=== PATIENT | male | born 1950 | race Caucasian/White ===

== ENCOUNTER 2017-06-11 14:15 | Emergency (ER) | payer MEDICARE, OTHER ==
[~2017-06-11] VITALS: Ht 175.3 cm; Wt 106.6 kg
== END 2017-06-11 16:02 | disposition home or self-care (01) ==
LOC: ED 14:15
PROC: 0HQ0XZZ Repair Scalp Skin, External Approach (ICD-10-PCS; principal; 2017-06-11)
DX: S06.0X9A Concussion with loss of consciousness of unspecified duration, initial encounter (principal); S01.01XA Laceration without foreign body of scalp, initial encounter; W01.198A Fall on same level from slipping, tripping and stumbling with subsequent striking against other object, initial encounter
CPT/HCPCS: 12002; 70450; 99284

== ENCOUNTER 2019-09-26 10:48 | Emergency (ER) | payer MEDICARE, OTHER ==
[~2019-09-26] VITALS: Ht 175.3 cm; Wt 106.6 kg
[2019-09-26] MEDS ORDERED: HYDROCHLOROTH12.5 MG PO (11:20)
[2019-09-26] MEDS ORDERED: GLIMEPIRIDE4 MG PO (11:21)
[2019-09-26] MEDS ORDERED: METFORMIN HCL500 MG PO (11:21)
[2019-09-26] MEDS ORDERED: PIOGLITAZONE HC30 MG PO (11:22)
[2019-09-26] MEDS ORDERED: LOTENSIN40 MG PO (11:22)
[2019-09-26] MEDS ORDERED: LOVASTATIN40 MG PO (11:22)
[2019-09-26] MEDS ORDERED: KEFLEX500 MG PO (12:13)
== END 2019-09-26 12:39 | disposition home or self-care (01) ==
LOC: ED 10:48
DX: N39.0 Urinary tract infection, site not specified (principal); E11.9 Type 2 diabetes mellitus without complications; I10 Essential (primary) hypertension; E78.5 Hyperlipidemia, unspecified; Z79.899 Other long term (current) drug therapy
CPT/HCPCS: 81001; 87077; 87088; 87186; 99283; A9270

== ENCOUNTER 2021-03-07 04:00 | Inpatient (IN) | payer MEDICARE, OTHER ==
[~2021-03-07] VITALS: Ht 175.3 cm; Wt 126.0 kg
[~2021-03-07 04:00] MED LIST: GLIMEPIRIDE4 MG PO; HYDROCHLOROTH12.5 MG PO; KEFLEX500 MG PO; LOTENSIN40 MG PO; LOVASTATIN40 MG PO; METFORMIN HCL500 MG PO; PIOGLITAZONE HC30 MG PO
--- NOTE | 2021-03-07 06:50 | NUR ---
PT ARRIVES TO THE FLOOR VIA STRETCHER. PT ABLE TO STAND AND TRASFER TO THE BED. TOLERATED WELL. RAILROAD WORKER AT BEDSIDE TO COMPLETE ADMISSION PROCESS. TELE # [address]. SAO2 91% ON 3LPM. LUNG SOUNDS WITH CRACKLES IN BILATERAL LOWER LOBES. NONPRODUCTIVE COUGH PRESENT DURING ADMISSION. HR 70'S TO 80'S. SCHEDULED INFUSION RUNNING UPON ARRIVAL TO FLOOR. PT ORIENTED TO ROOM AND UNIT. DENIES FURTHER NEEDS AT THIS TIME. CALL LIGHT IN REACH.
[2021-03-07] MEDS ORDERED: METFORMIN HCL500 M1 PO (10:10)
--- NOTE | 2021-03-07 10:10 | NUR ---
PATEINT AWAKE IN BED, CAREGIVER/DAUGHTER AT BEDSIDE. VITALS AND I&OS CHARTED. CALL LIGHT IN REACH, NO OTHER NEEDS AT THIS TIME
[2021-03-07] MEDS ORDERED: HYDROCHLOROTH12.5 M1 PO (10:11)
--- NOTE | 2021-03-07 10:48 | NUR ---
Tylenol 650mg po and tessalon perles 100mg po for admin for cough and generalized pain.
--- NOTE | 2021-03-07 11:15 | NUR ---
Pt reported urgency and frequenct with void. Dr. Douglas made aware of pt complains. New order obtained from Dr. Douglas to send off a urine with next void. UA order placed at this time.
--- NOTE | 2021-03-07 12:31 | NUR ---
Urine sent to lab.
--- NOTE | 2021-03-07 13:37 | NUR ---
Patient assisted to restroom and back to bed for bm. Patient reported shortness of breath while on the toilet, increased oxygen to 10L from 3L per nc. Patient's oxygen dropped to 80% while up on toilet then steadily increased to 90% after oxygen titrated up to the 10L. Pt back to bed, oxygen decreased to his baseline of 3L per nc, sat level 92%.
--- NOTE | 2021-03-07 17:37 | NUR ---
Increased patient to 6L per nc for oxygen desat of 86% sustained.
--- NOTE | 2021-03-07 17:39 | NUR ---
SPOKE WITH PATIENT VIA ROOM PHONE. PATIENT IS SOB WITH SPEAKING. LIVES WITH . IS RETIRED, DRIVES. USES NO DME. DENIES FINANCIAL CONCERN FOR AFFORDING MEDS/FOOD/UTILTIES. DISCUSSED POSSIBILITY OF NEEDING OXYGEN AT DISCHARGE. HE HAS NO PREFERENCE OF COMPANIES. IS NOT SURE HIS WILL BE ABLE TO COME GET HIM, HE DROVE HIMSELF IN. STATES SHE HAS ASTHMA AND "I DON'T WANT TO GIVE THIS TO HER". ASSURRED HIM THAT IF HE DOESN'T HAVE A RIDE WE WILL HELP WITH THIS. PATIENT HAS NO OTHER QUESTIONS AT THIS TIME.
--- NOTE | 2021-03-07 18:39 | NUR ---
Increased patient's oxygen to 9L per nc due to sp02 of 86% on 6L. Sp02 increased tp 90-92% on 9L oxygen per nc. Transiioned patient to side lying position as he reports he is unable to lay directly on his belly. No further needs. Personal supplies and call light within reach.
--- NOTE | 2021-03-07 19:20 | NUR ---
REPORT RECEIVED FROM OFFGOING RNJIGNA. OFFGOING RN TO PT ROOM FOR DESATURATION TO 79%. RT NOTIFIED. NONREBREATHER PLACED. SAO2 INCREASED TO 90'S. RT AT BEDSIDE. CALL LIGHT IN REACH.
--- NOTE | 2021-03-07 20:22 | EKG ---
[facility] [address] [place], [place] [address] Signed Sinus rhythm with premature atrial complexes Otherwise normal ECG No previous ECGs available Confirmed by ERENDIRA RENNER DO ([id number]) on 03/07/2021 8:21:54 PM Electronically Signed By: ERENDIRA RENNER DO 03/07/212021 PATIENT NAME: NAJMA MARQUEZ Electrocardiogram DATE OF : 52 PHYSICIAN: ERENDIRA RENNER DO REPORT #: [id number] REPORT IS CONFIDENTIAL AND NOT TO BE RELEASED WITHOUT AUTHORIZATION
--- NOTE | 2021-03-07 20:30 | NUR ---
PT ASSESSMENT COMPLETE. TELE # [address] HR 70'S, SR. LUNG SOUNDS WITH CRACKLES TO RLL. LLL DIM. VAPOTHERM IN PLACE, RT TO ROOM DURING ASSESSMENT FOR LOW O2 SATS. VAPOTHERM INCREASED BY RT. IVF INFUSING ORDERED. IV IS VERY POSITIONAL IN PT'S WRIST, FLUSHED, PATENT. ICE WATER REFILLED. PT DENIES FURTHER NEEDS AT THIS TIME. CALL LIGHT IN REACH.
--- NOTE | 2021-03-07 21:30 | NUR ---
WARDROBE MANAGER TO ROOM FOR SCHEDULED MED ADMINISTRATION. PT UP TO EDGE OF BED TO USE THE URINAL, HAD DIFFICULTY MANAGING CORDS AND CLOTHING. ASSISTED BYT HIS WARDROBE MANAGER AND HEAD SOFT SUGAR OPERATOR. PT BACK TO BED. PT DESATS TO LOW 80'S AFTER ACTIVITY. VAPOTHERM INCREASED TO 40/100%. MD TO [facility], EXPLAINED PT ACTIVITY. PER MD, OFFER RED CATH. SA02 INCREASED TO 90'S WITH INCREASE IN VAPOTHERM. PT STATES THAT HE WOULD LIKE TO SEE HOW THE NIGHT GOES TO DECIDE ON RED CATH. PT PRONING EDUCATION REINFORCED. PT STATES THAT HE IS UNABLE TO LAY ON HIS STOMACH COMFORTABLY. PT ENCOURAGED TO LAY ON HIS SIDE, WARDROBE MANAGER ASSISTS PT TO LAY ON SIDE AND PROPPED WITH PILLOWS. PT DENIES FURTHER NEEDS AT THIS TIME. CALL LIGHT IN REACH.
--- NOTE | 2021-03-07 22:35 | NUR ---
FACILITY SPECIALIST TO ROOM FOR IV PUMP ALARMING. PT STATES THAT HE IS READY TO TRY RED CATH AT THIS TIME. 14F RED CATH PLACED USING STERILE TECHINQUE. IMMEDIATE RETURN OF YELLOW URINE. PT TOLERATED WELL. NEW IV PLACED, 20 G TO R WRIST. BRISK BLOOD RETURN NOTED. PT TOLERATED WELL. PT DENIES FURTHER NEEDS AT THIS TIME. CALL LIGHT IN REACH.
--- NOTE | 2021-03-08 00:51 | NUR ---
IV COMPLETE, PT WOKE TO SOUND, LAYING ON RIGHT SIDE, HUGGING PILLOW.
--- NOTE | 2021-03-08 02:50 | NUR ---
PT UTLIZES CALL LIGHT, STATES THAT HE NEEDS TO USE THE BSC TO HAVE A BM. PROGRAM REVIEW DIRECTOR TO ROOM. PT UP TO BSC, SAO2 IN MID 80'S. NONREBREATHER PLACED WITH VAPOTHERM, SAO2 88%. PT STATES THAT HE WOULD LIKE TO SIT UP IN THE RECLINER. ASSISTED TO RECLINER WHEN FINISHED WITH BSC. NONREBREATHER REMOVED. PT ASSESSMENT COMPLETE. LUNGS COARSE IN BILATERAL LOWER LOBES. NO COUGH NOTED DURING ASSESSMENT. VAPOTHERM SETTINGS REMAIN 40/100%. TELE #[address], SR, HR 70'S. RED CATH DRAINING DARK YELLOW URINE. ICE WATER REFILLED. PT DENIES FURTHERNEEDS AT THIS TIME. CALL LIGHT AND PERSONAL ITEMS WITHIN REACH.
--- NOTE | 2021-03-08 05:41 | NUR ---
BRASSIERE CUP MOLD CUTTER TO ROOM TO OBTAIN VS. PT RESTING IN THE CHAIR WITH EYES CLOSED, WAKES EASILY TO VOICE. VS WNL. SAO2 96% ON 40/100% ON VAPOTHERM. FIO2 DECREASED TO 80%. SAO2 91-93%. ICE WATER REFILLED. PT DENIES FURTHER NEEDS. CALL LIGHT IN REACH.
--- NOTE | 2021-03-08 08:08 | NUR ---
Admin tylenol 650mg po and tessalon perles 100mg po for cough and generalized pain. Patient awake sitting up in chair at this time. Pt denies shortness of breath. Pt on vapotherm; 40L/80%, sp02 94% at this time. Patient denies needs. Personal supplies and call light within reach.
[2021-03-08] MEDS ORDERED: TERBINAFINE HC250 MG PO (08:22)
--- NOTE | 2021-03-08 14:32 | NUR ---
PATIENT IN BED RESTING ON RIGHT SIDE WITH EYES CLOSED. VITALS AND I&O'S CHARTED. PATIENT REFUSED SHOWER/BED BATH. FRESH WATER GIVEN. CALL LIGHT IN REACH. NO FURTHER NEEDS AT THIS TIME.
--- NOTE | 2021-03-08 15:08 | NUR ---
Attempted to call pt in room. He does not answer his phone. No change in plan for dc at this time.
--- NOTE | 2021-03-08 15:48 | NUR ---
Patient in prone position, respirations are even and non labored. Patient continues on 40L/100% vapotherm, 02 95%. Patient has no distress. Personal supplies and call light within reach.
--- NOTE | 2021-03-08 15:48 | NUR ---
Patient in prone position, respirations even and non labored. Patient continues on 40L/80% vapotherm, 02 sat level of 95%. Patient has no distress. Personal supplies and call light within reach.
--- NOTE | 2021-03-08 17:26 | NUR ---
MED REC COMPLETE
--- NOTE | 2021-03-08 18:52 | NUR ---
NEW TELE BATTERY PLACED. PATIENT IS SLEEPING ON HIS RIGHT SIDE AND 96%
--- NOTE | 2021-03-08 19:17 | NUR ---
REPORT RECEIVED FROM DAY SHIFT RN. PT UP WITH SHIFT PRODUCTION SUPERVISOR ASSIST TO BSC TO HAVE XL BOWEL MOVEMENT. SpO2 94%. DENIES NEEDS. WHITE BOARD UPDATED. CALL LIGHT IN REACH.
--- NOTE | 2021-03-08 19:57 | NUR ---
REPORT RECEIVED FROM DAY SHIFT RN. PT SITTING UP IN BED. ORAL CARE SUPPLIES AND WARM WASH CLOTH PROVIDED. SATS NOTED TO DROP TO 84% WITH ACTIVITY. VAPOTHERM IN PLACE AT 40L/80% FiO2. PT REPORTS SOB IS "NO WORSE THAN IT HAS BEEN". DENIES PAIN. PT LEFT RESTING ON RIGH SIDE. SpO2 90-91%. WHITE BOARD UPDATED. CALL LIGHT IN REACH.
--- NOTE | 2021-03-08 21:00 | NUR ---
EVENING ASSESSMENT COMPLETE. SCHEDULED MEDS ADMINISTERED PER EMAR. PRN FOR SLEEP ALSO PROVIDED. PT DENIES PAIN. REPORTS CONTINUED SOB. RESPIRATIONS 26. SpO2 >90% ON 40L/100% FiO2. HR 60'S. RED PATENT WITH YELLOW URINE. CATH CARE COMPLETE. ASSISTED PT TO PRONE POSITION BEFORE LEAVING ROOM. PT DENIES QUESTIONS OR CONCERNS. CALL LIGHT IN REACH.
--- NOTE | 2021-03-08 23:15 | NUR ---
PT RESTING ON RIGHT SIDE. VAPOTHERM IN PLACE. SpO2 LOW 90'S. RESPIRATIONS NON LABORED. ICE CHIPS PROVIDED. NO FURTHER NEEDS.
--- NOTE | 2021-03-09 03:15 | NUR ---
NEW TELE BATTERY PLACED. PT RESTING ON RIGHT SIDE. RESPIRATIONS 30. VAPOTHERM AT 40L/100% FiO2 IN PLACE. SpO2 92%. TELE #2. HR IRREGULAR. 50'S-60'S.
--- NOTE | 2021-03-09 03:53 | NUR ---
CALL LIGHT ANSWERED. IN ROOM TO ASSIST PT TO REPOSITION TO LEFT SIDE. WITH ACTIVITY SpO2 NOTED TO DROP TO MID 70'S WITH VAPOTHERM IN PLACE. 15L/NRB PLACED ALONG WITH VAPOTHERM. PT RECOVERED AFTER A FEW MINUTES AND SpO2 92% AT THIS TIME. PT STATES "I CAN'T BELIEVE HOW TIRED I GET FROM JUST ROLLING OVER". REASSURANCE PROVIDED. PT AGREES HE IS NOW COMFORTABLE AND DENIES FURTHER NEEDS.
--- NOTE | 2021-03-09 04:40 | NUR ---
SATS NOTED TO BE 84% WITH VAPOTHERM AND NRB. IN ROOM WITH RT TO ASSESS AND REPOSITION PT. SATS UP TO 91%.
--- NOTE | 2021-03-09 06:43 | NUR ---
PT ON CPAP UPON ENTERING ROOM. ASSISTED TO REMOVE MASK SO PT COULD GET A DRINK OF WATER. VAPOTHERM PLACED FOR DRINKING. SATS DROPPED TO 84%. PT PLACED BACK ON CPAP. RT IN ROOM TO ADJUST PRESSURES. SpO2 AT 92-96% AT THIS TIME. PT DENIES FURTHER NEEDS. CALL LIGHT IN REACH.
--- NOTE | 2021-03-09 07:50 | NUR ---
REPORT RECEIVED. PT IN BED WITH CPAP IN PLACE. CPOX MONITOR IN PLACE. SATURAITONS 97% HR 51. PT LEFT UNDISTURBED D/T ISOLATION PRECAUTIONS. VISULIZED THROUGH DOOR. CALL LIGHT IN REACH.
--- NOTE | 2021-03-09 09:00 | NUR ---
ASSESSMENT COMPLETED; RT IN TO CHANGE PT TO VAPOTHERM FOR CPAP BREAK AND TO EAT BREAKFAST. PT ON 100% Fi02. SATURATIOSN 88-91%. LUNGS COARSE ON RIGHT SIDE. CLEAR ON LEFT. HEART RATE IS NORMAL. RR WAS 22. PT ABLE TO ERAT 75% OF BREAKFAST. AND DRINK SOME WATER. COMMERCIAL SALES CONSULTANT IN TO ASSIST BRUSH TEETH AND WASH FACE. CALL LIGHT IN REACH.
--- NOTE | 2021-03-09 09:30 | NUR ---
PT DESATTING TO MID 80s ON VAPOTHERM SITTING UP. PT PLACED BACK ON CPAP 100% 12. PT ENCOURAGED TO SIDE LAY. SATURATIONS INCREASE TO 99%.
--- NOTE | 2021-03-09 10:54 | NUR ---
ROUNDED ON PT. DATURATIONS 100% ON CPAP. TOLERATING WELL. WILL CONSULT WITH RT TO TITRATE OXYGEN DOWN A LITTLE.
--- NOTE | 2021-03-09 12:30 | NUR ---
BLOOD SUGAR CHECK COMPLETED. PT IS ON CPAP AT THIS TIME. CHANGED TO VAPOTHERM TO ATTEMPT TO EAT. PT ABLE TO EAT 50% BEFORE DESATTING TO 79% WITHIN 2 MINUTES. LUNCH STOPPED AND PT PLACED BACK ON CPAP AND LYING ON RIGHT SIDE.
--- NOTE | 2021-03-09 14:54 | NUR ---
Patient is proning on right side with vapotherm 40 liters, 100%. Patient is monitoring oxygen level right now as well. A few tele battery was put in. Call light is in reach. Vitals, I&Os are complete.
--- NOTE | 2021-03-09 15:31 | NUR ---
ROUNDED ON PT TOCHANGE TO VAPOTHERM FOR DRINKL OF SODA. PT BLEW NOSE CLEAR AND VAPOTHERM IS SET TO 100% Fi02 40L. PT IS STILL SIDE LYING. NOSE CLEARED MUCH MORE AND SATURATIONS STAYING AT 95%. RR 24. WILL LET PT SIT WITH VAPOTHERM FOR A LITTLE TIME FOR A BREAK FROM CPAP LONG TOLERATING WITHOUT INCREASE IN WORK OF BREATHING. CALL LIGHT IN REACH.
--- NOTE | 2021-03-09 15:48 | NUR ---
Patient's water was refilled. Live was emptied and urine output ws 625ml. Patient dinner order was taken.
--- NOTE | 2021-03-09 15:51 | NUR ---
No change in plan for dc.
--- NOTE | 2021-03-09 17:25 | NUR ---
Patient has not had dinner yet and is waiting on blood suger checks first from RN. Live has been emptied and urine output was 125ml. Patient is resting while proning on right side with bipap on.
--- NOTE | 2021-03-09 18:19 | NUR ---
PT PLACED ON VAPOTHERM FOR DINNER. SATURAITONS 92%. ATE 100%. THEN PLACED BACK ON CPAPAND IS SIDE LYING. 10 UNIT INSULIN ADMISNTERED. SPO2 AT 93%.
--- NOTE | 2021-03-09 19:30 | NUR ---
SHIFT REPORT RECEIVED FROM IGNACIO GRIFFIN. PT STILL ON MS RM 116 AT THIS TIME.
--- NOTE | 2021-03-09 20:15 | NUR ---
PT MOVED FROM MS TO CCU RM 128 WITHOUT DIFFICULTY. PT ON CPAP 12/100% FOR MOVE. RECOVERS WELL AND CPAP PLACED ON 12/80% WITH SPO2 95%. CALL LIGHT IN REACH.
--- NOTE | 2021-03-09 21:22 | NUR ---
ASSESSMENT, VS AND I&O COMPLETED. PT RESTING IN RIGHT SIDE. GCS 15, A&O X4. LUNGS CLEAR IN UPPER LOBES, FINE CRACKLES IN LOWE LOBES. HR SR @ 86. SPO2 94% ON CPAP 12/80%. IV CDI, WNL, FLUSHED WELL. SCHEDULED MEDS PROVIDED. PT DENIES NEED FOR ANY PRN MEDS. ABD SOFT, OBESE, NONTENDER, BOWEL TONES ACTIVE. CMS INTACT. PT HAS AN OCCASSIONAL DRY COUGH. PRONING EDUCATION PROVIDED, PT LAYING ON RIGHT SIDE AT THIS TIME. ICE WATER PROVIDED. NO OTHER NEEDS. CALL LIGHT IN REACH.
--- NOTE | 2021-03-09 22:09 | NUR ---
remdezivir finished, patient SL. patient resting on left side cpap 80% Fi02 in place. denies any needs. call light in reach.
--- NOTE | 2021-03-10 00:48 | NUR ---
PATIENT TOLERATING CPAP AT 80% Fi02. RR 30'S. TURNED TO LEFT SIDE STILL, PATIENT UNABLE/UNWILLING TO PRONE IN DIFFERENT POSIITION. VS STABLE.
--- NOTE | 2021-03-10 02:28 | NUR ---
O2 PROBE CHANGED OUT DUE TO POOR READINGS. PATIENT IS AWAKE, REPORTS FEELING HIS BREATHING IS OKAY BUT HAS A DRY MOUTH. PATIENT HAS BEEN TAKING MASK SLIGHTLY TO THE SIDE TO TAKE SIPS OF WATER. O2 SATS VARY FROM 85-90%. TITRATED Fi02 TO 80% Fi02.
--- NOTE | 2021-03-10 05:00 | NUR ---
PATIENT SLEEPING OFF AND ON. RR 32, O2 SATS 88% ON 90% Fi02. PATIENT SLEEPING ON HIS LEFT SIDE. DENIES ANY CONCERNS BESIDES HIS DRY MOUTH. TAKING SIPS OF WATER TOLERATED. VS STABLE. RED HAS GOOD URINE OUTPUT. CALL LIGHT IN REACH.
--- NOTE | 2021-03-10 06:21 | NUR ---
PATIENT LAYING ON HIS BACK, O2 SATS AT 85% ON 90% Fi02 ON CPAP. PATIENT WOKE EASILY. DISCUSSED O2 DEMANDS. TITRATED TO 100% Fi02. ENCOURAGED AND ASSISTED PATIENT TO TURN TO RIGHT SIDE. O2 SATS IMPROVED TO 90% WITHIN 5 MINS, UP TO 94% AFTER 15 MINS. RR 28. RED EMPTIED. PATIENT DENIED ANY NEEDS AT THIS TIME. UPDATE GIVEN TO .
--- NOTE | 2021-03-10 07:58 | NUR ---
report received from safety and health consultant. patient resting on back with HOB up at 34 degrees. wearing CPAP, 14 pressure and 90% oxygen. breathing at 31 rate currently. Discussed importance of side to side and prone position.
--- NOTE | 2021-03-10 08:54 | NUR ---
from my first assessment until now patient has been on his left side, now on back for medications. continues with cpap.
--- NOTE | 2021-03-10 09:42 | NUR ---
Patient stated did not sleep much last night and trying to sleep some this morning. lights in room off. door shut. across from nurses station and curtains slightly open. call light, bedside table and water in reach.
--- NOTE | 2021-03-10 10:17 | NUR ---
DR Frazier in to see patient, patient able to lay prone with help. in the prone position now.
--- NOTE | 2021-03-10 10:26 | NUR ---
Continues to lie prone, changed to non rebreather at 16L and monitoring saturations for 5 minutes to see if can transport via bed to CT scanner on nonrebreather. tolerating well. started at 1023, now 1028 and saturations 92%
--- NOTE | 2021-03-10 11:59 | NUR ---
back to room after going to CT scanner. tolerated well. used non rebreather at 15L to travel there and back and the cpap when in the scanner. saturations lowest level was 88%. Now back in room, laying on left side on cpap, 80%fio2 and 14 pressure. RR is 33. ordered lunch.
--- NOTE | 2021-03-10 12:48 | NUR ---
TRANSPORTED ON NONREBREATHER DOWN TO CT , PLACED ON CPAP DURING CT CPAP 14 80%, PT DID WELL NO COMPLICATIONS TRANSPORTED BACK TO ROOM ON NONREBREATHER AND PLACED BACK ON CPAP OF 14 WILL TITRATE PRESSURE CANO TO 12 TOLERATED . VAPOTHERM SETUP READY FOR PATIENT.
--- NOTE | 2021-03-10 15:28 | NUR ---
ON CPAP NOW, LAYING PRONE. O2 SAT IS 95% SETTINGS ARE 12 PRESSURE AND 80% FIO2. 22RR.
--- NOTE | 2021-03-10 16:24 | NUR ---
patient states ok to talk with his daughter Devika Jordan. I called her and gave her updates about his care for today.
--- NOTE | 2021-03-10 16:34 | NUR ---
Update from RN. Peng chest CT today. Declines to prone. No plan for dc today.
--- NOTE | 2021-03-10 17:12 | NUR ---
while sleeping cpap settings 12 pressure and 80%fio2, saturations down to 85%, now changed settings to 12 pressure and 100%fio2. saturations now 93%. RR 37 currently.
--- NOTE | 2021-03-10 17:26 | NUR ---
DR Frazier notified about the high blood sugar readings and oxygenation status with cpap settings. no new orders for toninght.
--- NOTE | 2021-03-10 17:53 | NUR ---
EATING WITH VAPO THERM ON AT 40L AND 100% FIO2. O2 SATURATIONS DOWN TO 83%. WILL PLACE CPAP BACK ON WHEN DONE EATING.
--- NOTE | 2021-03-10 21:00 | NUR ---
PATIENT REPORTS DIFFICULTY RESTING DUE TO A HEADACHE AND COUGHING. PRN MEDS PROVIDED. PATIENT ASSISTED TO REPOSITION TO HIS LEFT SIDE. TOLERATING CPAP 100% Fi02. RR 30'S. PATIENT APPEARS TIRED WITH LABORED BREATHING. SCHEDULED MEDS PROVIDED. PATIENT HAS DIMINISHED BREATH SOUNDS THROUGHOUT, CLEAR IN UPPERS. RED EMPTIED FOR 300 MLS CONCENTRATED URINE. PATIENT'S EXTREMITIES ARE WARM TO THE TOUCH, ORAL TEMP WNL. PATIENT APPEARS FLUSHED.
--- NOTE | 2021-03-10 23:01 | NUR ---
PATIENT CONTINUES TO TOLERATED CPAP 100% Fi02, O2 SATS MID 90'S AND RR DOWN TO 20'S. PATIENT APPEARS COMFORTABLE RESTING ON LEFT SIDE.
--- NOTE | 2021-03-11 00:33 | NUR ---
PATIENT SLEEPING SOUNDLY. RR 30'S, O2 SATS 97%. TITRATED TO 90% Fi02.
--- NOTE | 2021-03-11 02:30 | NUR ---
PATIENT TITRATED TO 80% Fi02, O2 SATS 95%. RR 20-30. PATIENT APPEARS TO BE SLEEPING SOUNDLY.
--- NOTE | 2021-03-11 05:05 | NUR ---
PATIENT WOKE EASILY WHEN RN ENTERED THE ROOM. PROVIDED PATIENT WITH FREASH ICE WATER. VS STABLE. RED EMPTIED. PATIENT TOLERATED 80% Fi02 ON CPAP, RR 30'S. DENIED ANY NEEDS AT THIS TIME.
--- NOTE | 2021-03-11 05:57 | NUR ---
PATIENT CONTINUES TO LAY ON HIS LEFT SIDE. CPAP IN PLACE. APPEARS TO BE SLEEPING SOUNDLY. TITRATED TO 90% Fi02 DUE TO O2 SATS CONSISTENTLY 84%. AFTER 15MINS IMPROVED ONLY TO 85%. TITRATED TO 100% Fi02. PATIENT WOKE THIS TIME STAFF WAS IN ROOM. MASK READJUSTED. PATIENT DENIED NEEDS. O2 SATS IMPROVED AFTER ABOUT 5 MINS. RR 35.
--- NOTE | 2021-03-11 06:19 | NUR ---
PATIENT CONTINUES TO DESAT IN LOWER 80'S. Fi02 100%. RT CALLED. THIS RN INTO ROOM, TITRATED PRESSURE TO 14 FROM 12. TURNED PATIENT TO THE RIGHT SIDE. PATIENT IS WARM TO THE TOUCH BUT AXILLARY TEMP WNL. PATIENT IMPROVED TO 90% O2 SAT.
--- NOTE | 2021-03-11 07:30 | NUR ---
RECEIVED REPORT AT 0700. PT IN ROOM ON C-PAP AT 100% RESTING.
--- NOTE | 2021-03-11 08:15 | NUR ---
UPPER LOBES CLEAR, LOWER LOBES HAVE CRACKLES PRESENT. TRACE BILATERAL LOWER LEG EDEMA NOTED. URINE OUTPUT WDL SO FAR. V/S WDL SO FAR. PT IS TURNING SIDE TO SIDE. PT HAS NO RESERVE LEFT OVERALL THOUGH. ABD SOUNDS PRESENT.
--- NOTE | 2021-03-11 10:00 | NUR ---
PT AT THIS TIME IS SITTING IN CHAIR BESIDES HIS BED AND IS LEANING OVER TO THE BED. PT ALSO HAD A BM. WILL CONTINUE TO MONITOR.
--- NOTE | 2021-03-11 11:02 | NUR ---
PT STILL SITTING IN CHAIR. FIO2 ON C-PAP NOW AT 60% WITH O2 SATS AT 95%.
--- NOTE | 2021-03-11 12:00 | NUR ---
UPPER LOBES CLEAR, LOWER LOBES HAVE CRACKLES PRESENT. PT ON C-PAP 40L O2/ 100%. URINE IS GETTING DARKER IN COLOR. URINE OUTPUT STILL WDL SO FAR. PT IN BED AND WILL TRY TO EAT SOME LUNCH. WILL CONTINUE TO MONITOR.
--- NOTE | 2021-03-11 12:01 | NUR ---
No change in plan at this time.
--- NOTE | 2021-03-11 13:16 | NUR ---
Patient admitted on 03/07 for Covid-19. He is on a 60 gm consistent carb diet. He has a good appetite. No nutrition intervention at this time. Will continue to monitor.
--- NOTE | 2021-03-11 14:30 | NUR ---
RT IN ROOM AT THIS TIME. PT TO LAY ON HIS RIGHT SIDE. O2 LEVELS AT 88% WIHLE ON HIS LEFT SIDE. VAPOTHERM SETTINGS UNCHANGED.
--- NOTE | 2021-03-11 15:00 | NUR ---
PT ON HIS RIGHT SIDE. O2 SATS >90% ON C-PAP 100% FIO2.
--- NOTE | 2021-03-11 16:15 | NUR ---
UPPER LOBES CLEAR, ALL OTHER LOBES HAVE CRACKLES PRESENT. NO OTHER NEW CONCERNS NOTED AT THIS TIME. PT IS ON HIS RIGHT SIDE. O2 SATS SATISFACTORY AT THIS TIME.
--- NOTE | 2021-03-11 18:00 | NUR ---
OTHER RN IN ROOM. PT EATING DINNER. O2 SATS IN 70'S WITH EATING.
--- NOTE | 2021-03-11 19:34 | NUR ---
REPORT RECEIVED FROM DIONY RN, WILL CONTINUE PLAN OF CARE.
--- NOTE | 2021-03-11 21:20 | NUR ---
THIS RN IN TO ASSESS PT AND TAKE VITALS, PT LAYING IN BED ALERT AND ORIENTED X4. CPAP ON AT 12 AND 100%. PT BREATHING NOTED TO BE LABORED AND REPORTS SHORTNESS OF BREATH, SPO2 80-84%. VITALS ASSESSED, TEMPERATURE 102.7 AXILLARY. PT REPORTS NO PAIN BUT REPORTS CHILLS. PT CPAP INCREASED TO 14 AT THIS TIME AND ASSISTED ONTO HIS LEFT SIDE, SPO2 NOW MAINTAINING AT 85%. PT REPORTS NO FURTHER NEEDS AT THIS TIME WHEN ASKED, WILL CALL DR. MISHRA. CALL LIGHT IN REACH, BED IN LOWEST POSITION, WILL CONTINUE PLAN OF CARE.
--- NOTE | 2021-03-11 21:25 | NUR ---
DR. MISHRA NOTIFIED OF PT'S VITALS REGARDING ELEVATED TEMPERATURE AND LOW SPO2, NEW ORDERS TO BE PLACED, NEW ORDERS GIVEN TO DRAW BLOOD CULTURES, WILL CONTINUE PLAN OF CARE.
--- NOTE | 2021-03-11 21:59 | NUR ---
THIS RN IN TO ADMINISTER SCHEDULED MEDICATIONS, PT IN BED AT THIS TIME ON THE CPAP ON 14 AND 100%. LAB IN TO DRAW BLOOD CULTURES. SCHEDULED MEDICATIONS ALONG WITH PRN TYLENOL AND TRAZADONE ADMINISTERED AFTERWARDS (SEE MAR). INSULIN HELD PER SLIDING SCALE. PT REPORTS NO FURTHER NEEDS AFTERWARDS AND IS STILL LAYING ON HIS LEFT SIDE. PT REPORTS THE CPAP BEING TO "FORCEFUL" CPAP DECREASED TO 12 AND LEFT ON 100% FIO2. PT SPO2 88% AT THIS TIME. PT REPORTS NO FURTHER NEEDS AFTERWARDS, WILL CONTINUE PLAN OF CARE. CALL LIGHT IN REACH, BED IN LOWEST POSITION.
--- NOTE | 2021-03-11 22:52 | NUR ---
THIS RN IN TO ADMINISTER SCHEDULED MEDICATION. PT LAYING IN BED ON THE CPAP AWAKE AND ALERT AT THIS TIME. PT ASSISTED WITH TAKING OFF BLANKETS PT STATES HE IS WARM, TEMPERATURE IN ROOM ALSO DECREASED. TEMPERATURE REASSESSED AT THIS TIME AND WAS 102.5 AXILLARY. PT DENIES CHILLS. SCHEDULED IV ANTIBIOTICS STARTED AT THIS TIME (SEE JUL), AND ICE WATER PROVIDED PER PT'S REQUEST. PT ABLE TO TAKE A DRINK AND PUT THE CPAP BACK ON. PT STILL ON CPAP OF 12 AND FIO2 OF 100%, SPO2 88-89%. PT REPORTS NO FURTHER NEEDS WHEN ASKED AND WAS ASSISTED INTO A LEFT SIDE LYING POSITION. WILL CONTINUE PLAN OF CARE. CALL LIGHT IN REACH, BED IN LOWEST POSITION.
--- NOTE | 2021-03-12 00:38 | NUR ---
THIS RN IN TO ASSESS PT AT THIS TIME AND TAKE VITALS. PT LAYING IN BED SLEEPING AND AWOKE EASILY. VITALS TAKEN AT THIS TIME, TEMPERATURE NOTED TO BE 100.5 AXILLARY. PT SPO2 87-88% ON THE CPAP AT 12 AND 100% FIO2. PT ASSESSED AT THIS TIME WELL (SEE CHART). PT REPORTS NO FURTHER NEEDS AFTERWARDS AND RETURNED BACK TO SLEEP. CALL LIGHT IN REACH, BED IN LOWEST POSITION, IV ABX INFUSING ORDERED. WILL CONTINUE PLAN OF CARE.
--- NOTE | 2021-03-12 02:21 | NUR ---
PT CHECKED ON AT THIS TIME. PT LAYING IN BED ON HIS RIGHT SIDE SLEEPING. PT ON THE CPAP, SETTINGS UNCHANGED, SPO2 91-93%. RESPIRATIONS NOTED, PT IN NO APPARENT DISTRESS AT THIS TIME AND WAS LEFT UNDISTURBED, CALL LIGHT IN REACH, BED IN LOWEST POSITION, WILL CONTINUE PLAN OF CARE.
--- NOTE | 2021-03-12 03:47 | NUR ---
THIS RN IN TO TAKE VITALS AND ASSESS PT. PT LAYING IN BED SLEEPING AT THIS TIME ON THE CPAP AT 12 AND FIO2 OF 100%, SPO2 NOTED TO BE 93%. PT IV ANTIBIOTICS COMPLETED, PT SALINE LOCKED. PT VITALS TAKEN, AXILLARY TEMPERATURE 97.4. PT ASSESSED AT THIS TIME (SEE CHART). PT AWAKE AT THIS TIME AND WAS PROVIDED WITH WARM BLANKETS AND ICE WATER PER HIS REQUEST. PT REPORTS NO FURTHER NEEDS AND RETURNED BACK TO SLEEP. CALL LIGHT IN REACH, BED IN LOWEST POSITION, WILL CONTINUE PLAN OF CARE.
--- NOTE | 2021-03-12 04:33 | NUR ---
THIS RN IN TO FIX PT'S ECG LEADS. NEW LEADS PLACED AT THIS TIME, PT AWOKE EASILY AT THIS TIME. AFTER PLACING LEADS PT REPORTED NO FURTHER NEEDS WHEN ASKED AND RETURNED BACK TO SLEEP. CALL LIGHT IN REACH, BED IN LOWEST POSITION, CPAP ON, SPO2 89%, WILL CONTINUE PLAN OF CARE.
--- NOTE | 2021-03-12 05:45 | NUR ---
PT CHECKED ON AT THIS TIME, PT LAYING IN BED SLEEPING, CPAP IN PLACE. PT SPO2 92% AT THIS TIME, RESPIRATIONS NOTED. PT IS IN NO APPARENT DISTRESS AND WAS LEFT UNDISTURBED, WILL CONTINUE PLAN OF CARE. CALL LIGHT IN REACH, BED IN LOWEST POSITION.
--- NOTE | 2021-03-12 06:16 | NUR ---
THIS RN IN TO ADMINISTER SCHEDULED MEDICATION. PT LAYING IN BED SLEEPING, CPAP AT 12 AND 100% FIO2, SPO2 93%. PT AWOKE EASILY AT THIS TIME. SCHEDULED IV ANTIBIOTICS STARTED (SEE JUL). PT REPORTED NO NEEDS AT THIS TIME WHEN ASKED AND GAVE HIS BREAKFAST ORDER. PT BACK TO A LEFT SIDELYING POSITION AT THIS TIME, SPO2 95%, PT STATES THAT HIS BREATHING FEELS IMPROVED FROM LAST NIGHT. CALL LIGHT IN REACH, BED IN LOWEST POSITION, WILL CONTINUE PLAN OF CARE.
--- NOTE | 2021-03-12 08:38 | NUR ---
IN PATIENT'S ROOM FOR ASSESSMENT AND MEDS. PATIENT ON CPAP AT 100%, LAYING ON LEFT SIDE UPON ENTRY. PT DENIES SHORTNESS OF BREATH AT THIS TIME. SQ INSULIN GIVEN. AM BLOOD DRAW DONE PER THIS RN. PT TOLERATED WELL. RED DRAINING YELLOW URINE. LUNG SOUNDS REVEAL CLEAR UPPER LOBES AND FINE CRACKLES IN RIGHT LOWER LOBE, DIM LEFT LOWER LOBE. PT DENIES PAIN AT THIS TIME. PLAN OF CARE DISCUSSED WITH PATIENT. PT THEN ABLE TO REPOSITION SELF IN BED TO FLAT, SCOOT SELF UP, AND THEN SAT UP IN BED W/ HOB ELEVATED. PT THEN SWITCHED TO VAPOTHERM 40L AND 100%. SP02 AFTER 1-2 MINUTES DOWN TO 79%. PT ABLE TO TAKE HIS AM MEDS WITH A SIP OF WATER. NO FOOD AT THIS TIME DUE TO LOW SP02. NON REBREATHER FLUSH PLACED OVERTOP OF VAPOTHERM, AND PT IS STAYING 84-85%. RR 20-25 AT THIS TIME. PT PURPOSEFULLY TAKING DEEP BREATHS IN NOSE AND OUT MOUTH. LIPS APPEAR SLIGHTLY CYANOTIC NOW THAT CPAP IS OFF. PT HAS A VERY LARGE ABDOMEN, AND THE MORE UPRIGHT HE CAN BE, THE BETTER. HR IN THE 50s. AFEBRILE THIS AM, HOWEVER DID HAVE A HIGH TEMP LAST NIGHT. IV ZOSYN INFUSING. CONTINUE TO MONITOR.
--- NOTE | 2021-03-12 11:09 | NUR ---
IN ROOM TO HELP PATIENT WITH A DRINK OF HIS ENSURE AND WATER. PT REPOSITIONS SELF ONTO LEFT SIDE, AND THEN GIVEN TYLENOL FOR GEN DISCOMFORT IN HIPS AND KNEES. PATIENT DOWN TO 78% ON VAPOTHERM ALONE, THEREFORE PLACED BACK ON CPAP OF 14 AND 100%. AFTER 1-2 MINUTES, PATIETN NOW 88% AND STILL RISING. RR 23-28. RED DRAINED FOR 430 ML. LUNCH ORDERED FOR PATIENT. PT REMAINS AFEBRILE. CONTINUE TO MONITOR.
--- NOTE | 2021-03-12 12:30 | NUR ---
PATIENT UP TO BSC TO HAVE ANOTHER LIQUID BM. THEN TO CHAIR FOR LUNCH. PT REMAINED ON CPAP WHILE ON COMMODE, BUT SWITCHED TO VAPOTHERM AND NONREBREATHER WHILE IN CHAIR TO TRY AND EAT. PT ABLE TO EAT SLOWLY, TAKING BREAKS TO PUT NONREBREATHER BACK OVER TOP OFF VAPOTHER, 40L AND 100%. PATIENT'S DAUGHTER MOON IS IN ROOM AND HELPFUL TO PATIENT. RR IN THE MID TO UPPER 20s TO LOW 30s. CONTINUE TO MONITOR.
--- NOTE | 2021-03-12 17:17 | NUR ---
PT UP TO CHAIR FOR DINNER. PT HAS BEEN ON CPAP OF 14 AND 100% SINCE HE LAID DOWN TO TAKE HIS NAP. FI02 TURNED DOWN TO 90% AROUND 1500, BUT JUST NOW TURNED BACK UP TO 100% WHILE PT MOVING UP TO CHAIR. WILL SWITCH PATIENT OVER TO NRB AND VAPOTHERM TO EAT DINNER. ASSESSMENT COMPLETE.
--- NOTE | 2021-03-12 19:19 | NUR ---
REPORT RECIEVED, CARE OF PATIENT ASSUMED AT THIS TIME.
--- NOTE | 2021-03-13 06:58 | NUR ---
PT REMAINED UNCHANGED THROUGH THIS RNS SHIFT. PTS DAUGHTER VISITED HIM LAST NIGHT AND HAD HIM GET UP INTO A CHAIR THAT HE DID TOLORATE WELL. PTS DAUGHTER PLANS TO DO IT AGAIN THIS AM. PT CONTINUES TO REQUIRE CPAP AT MAX SETTINGS.
--- NOTE | 2021-03-13 09:11 | NUR ---
IN PATIENT'S ROOM AT 0800 TO GIVE AM MEDS, HELP WITH REPOSITIONING, AND HELP PATIENT UP TO BED SIDE CHAIR FOR BREAKFAST. PT STATES HE DIDN'T HAVE GOOD OF A NIGHT. PT'S CALL LIGHT ON INSIDE OF SIDE RAILS NOT WORKING, AND PT REPORTS HE COULDN'T FIND HIS OTHER CALL LIGHT AND HAD TO YELL OUT. PT UP TO CHAIR ON CPAP. SP02 HAS BEEN HOVERING IN THE LOWER 90s ON CPAP. PT HELPED TO BLOW HIS NOSE. RED EMPTIED. PATIENT THEN SWITCHED TO VAPOTHERM AND NONREBREATHER. PT STILL HAVING TROUBLE KEEPING SP02 IN THE 90s OR EVEN UPPER 80s, THEREFORE BACK ON CPAP FOR A LITTLE WHILE LONGER BEFORE HE ATTEMPTS TO EAT BREAKFAST. NEW BED THAT WAS BROUGHT INTO ROOM ALSO DOES NOT SEEM TO WORK ON THE INSIDE SIDE RAILS FOR THE CALL LIGHT ON THE BED. PT HAS CALL LIGHT IN REACH AT THIS TIME AND WILL ENSURE HE CONTINUES TO HAVE IT.
--- NOTE | 2021-03-13 09:25 | NUR ---
BACK IN PATIENT'S ROOM AT THIS TIME TO HELP HIM EAT. ONTO VAPOTHERM AND NRB. SP02 IS 87% JUST ON VAPOTHERM AT THIS TIME WHILE PATIENT IS EATING.
--- NOTE | 2021-03-13 09:50 | NUR ---
BACK ON CPAP NOW AT 15 AND 100%. PT RESTING IN CHAIR. SP02 IS NOW 92%. CONTINUE TO MONITOR.
--- NOTE | 2021-03-13 13:22 | NUR ---
PATIENT FINISHES HIS LUNCH AND REMAINS RESTING IN CHAIR FOR A WHILE, VISITING WITH HIS DAUGHTER MONO. PT ON 40L AND 100% PLUS NRB WHILE SITTING IN CHAIR. PT UP TO 94% ON THIS. PT THEN SWITCHED BACK TO CPAP FOR MOVEMENT BACK TO BED. PT NOW LAYING ON LEFT SIDE, POSITIONED WITH PILLOWS FOR COMFORT AND WANTING TO TAKE A NAP. PT ATE ABOUT 75% OF HIS LUNCH. SP02 IS NOW 94% ON CPAP OF 15 AND 100%. PT'S DAUGHTER LEAVING FOR NOW. CALL LIGHT WITHIN REACH, ATTACHED TO BED, THE SIDE RAILS ON THE BED CALL LIGHT ARE STILL NOT OPERATING CORRECTLY. CONTINUE TO MONITOR.
--- NOTE | 2021-03-13 15:44 | NUR ---
PATIENT SLEEPING IN BED AT THIS TIME, REMAINS ON LEFT SIDE. SP02 IS 90% ON 90% FI02 CPAP 14. HR IN THE 60s. CONTINUE TO MONITOR.
--- NOTE | 2021-03-13 17:24 | NUR ---
PATIENT UP TO CHAIR FOR DINNER. SWITCHED TO VAPOTHERM W/ NRB CLOSE BY. CURRENTLY 92% JUST ON VAPOTHERM, MAX SETTINGS. CONTINUE TO MONITOR CLOSELY. PT THINKS HE MAY NEED TO HAVE A BM SOON.
--- NOTE | 2021-03-13 18:30 | NUR ---
PATIENT BACK TO CPAP OF 16 AND 100%. PT REMAINS IN CHAIR AT THIS TIME. RR ELEVATED, AT 35 AT THIS TIME. REPORT TO PARTITION SETTER.
--- NOTE | 2021-03-13 19:30 | NUR ---
REPORT RECEIVED FROM CAT GRIFFIN. PT UP IN CHAIR, WEARING CPAP WITH SPO2 94%, DENIES NEEDS AT THIS TIME.
--- NOTE | 2021-03-13 20:00 | NUR ---
IN TO DO ASSESSMENT AND VS. HS MEDS GIVEN WITH PT ON VAPOTHERM WITH NRB 15+L. PT DESATURATED TO 68-69% QUICKLY WITH PILLS AND WATER. PT RECOVERING VERY SLOWLY.
--- NOTE | 2021-03-13 20:22 | NUR ---
RT IN TO WORK WITH PT AND PLACE BACK ON CPAP.
--- NOTE | 2021-03-13 20:50 | NUR ---
PTS SATS HAVE COME UP TO HIGH 80'S 90% ON CPAP, HELPED HIM TRANSFER TO BED AND GET REPOSITIONED ONTO LEFT SIDE TO TRY TO SLEEP FOR THE NIGHT. CALL LIGHT IN REACH. SATS DROPPED SOME WITH ACTIVITY BUT PT RECOVERED SATS ABOVE 90% AFTER A FEW MINUTRE REMAINING ON CPAP.
--- NOTE | 2021-03-14 00:10 | NUR ---
IN TO DO ASESMENT AND VS. PT DENIES NEEDS. STATES HE HAS BEEN ABLE TO SLEEP FOR A WHILE. CALL LIGHT IN REACH.
--- NOTE | 2021-03-14 02:28 | NUR ---
PT CALLS FOR HELP WITH ADJUSTING MASK. HELPED WITH MASK, REPOSITIONING. SPO2 HAS BEEN 97-98% ON CPAP, FIO2 TURNED DOWN TO 90%.
--- NOTE | 2021-03-14 03:53 | NUR ---
IN TO DO ASSESSMENT AND VS. PT ASSISTED WITH REPOSITIONING TO RIGHT SIDE. SPO2 HAS BEEN 96-97% SO FIO2 TURNED DOWN TO 80%. CALL LIGHT IN HAND.
--- NOTE | 2021-03-14 05:45 | NUR ---
LAB IN TO TRY TO DRAW PT.
--- NOTE | 2021-03-14 06:15 | NUR ---
IN TO CHECK ON PT, PT ASSISTED UP TO BSC TO HAVE LARGE SOFT STOOL, AND THEN INTO CHAIR TO SIT UP FOR BREAKFAST. PT REMAINED ON CPAP 16/80% DURING THIS ACTIVITY WITH SATS MID TO HIGH NINETIES AND THEN HIGH 80'S WHILE SITTING UP IN CHAIR. WILL LET PT RECOVER FOR A WHILE. BED ALARM IN LAP.
--- NOTE | 2021-03-14 08:14 | NUR ---
PT FOUND TO BE ON [id number] CPAP 80%. FIO2 INCREASED TO 90% FOR SPO2 OF 89%, MARY CHANGE WELL. BBS TUBULAR, CLEAR, BUT DIMINISHED IN THE BASES. PT PROTECTING OWN AIRWAY AT THIS TIME. BVM AT BEDSIDE. PT REFUSING HEATER ON CPAP AT THIS TIME.
--- NOTE | 2021-03-14 08:42 | NUR ---
IN PATIENT'S ROOM FOR BREAKFAST, ASSESSMENT, MEDS. PT UP IN CHAIR ALREADY AND ON CPAP OF 16 AND 90%. PT SWITCHED TO VAPOTHERM AND NRB FOR BREAKFAST. PT STATES HIS NIGHT WAS OKAY. OF NOTE, PATIENT WAS ABLE TO TOLERATE 80-90% FI02 THROUGH SOME OF THE NIGHT. RR HIGH 20s TO MID 30s. PT REPORTS HE FEELS HIS BREATHING IS ABOUT THE SAME YESTERDAY, MAYBE A LITTLE BETTER. PT NOW EATING AND TAKING NRB OFF TO EAT, BUT REPLACES IT. CONTINUE TO MONITOR.
--- NOTE | 2021-03-14 09:28 | NUR ---
PATIENT BACK TO BED X1 PERSON ASSIST. PT ON CPAP AND TOLERATES ACTIVITY WELL. SP02 STAYING 95% ON 90%, THEREFORE TURNED DOWN TO 80%. PT LAY ON FAR RIGHT SIDE. 2 WARM BLANKETS PROVIDED. RED EMPTIED. IV ZOSYN CONTINUES. HR 60S. CALL LIGHT IN PATIENT'S HAND.
--- NOTE | 2021-03-14 13:07 | NUR ---
PATIETN UP TO CHAIR FOR LUNCH. TRANFERRRED ON CPAP 100% AND 16. PT TOLERATED WELL. PT STATES, "I CAN'T WAIT FOR THIS WEAKNESS TO GET BETTER." PT DENIES PAIN. PT NOW ON VAPOTHERM AND HAS NRB BY HIS SIDE. PT FEELS THE NEED TO HAVE A BM AFTER LUNCH. LUNG SOUNDS REVEAL COARSE CRACKLES IN RIGHT MID TO LOWER BASE, CLEAR UPPER LOBES, FINE CRACKLES LEFT BASE. PT WAS LAYING WITH RIGHT SIDE DOWN FOR A OCUPLE OF HOURS. CONTINUE TO MONITOR.
--- NOTE | 2021-03-14 13:21 | NUR ---
PATIENT NOW ONTO COMMODE AND HAVING ANOTHER BM. PT HAD A LARGE, SOFT/LIQUIDY STOOL THIS AM WELL. PT ON CPAP FOR THIS MOVEMENT, AND CURRNELTY AT 85% SP02 WHILE ON 100% CPAP 16. STAYING IN ROOM WITH APTIETN FOR ALL OF THIS.
--- NOTE | 2021-03-14 14:41 | NUR ---
PATIENT REMAINS UP IN CHAIR AT THIS TIME, AND ON VAPOTHERM AND NRB. SP02 IS 88-89% ON THIS AND PT TOLERATING WELL. PT WANTING TO GET BACK TO BED AT 1500 AND REST.
--- NOTE | 2021-03-14 15:13 | NUR ---
PATIENT HELPED BACK TO BED AND NOW LAYING ON LEFT SIDE WITH CPAP ON. SP02 IS 93% AT THIS TIME. HR IN THE 60s. RR 30s.
--- NOTE | 2021-03-14 16:45 | NUR ---
Update from Rn pt maintain his own. Cont. on CPAP and vapotherm. No change in CM plan today.
--- NOTE | 2021-03-14 17:45 | NUR ---
PATIENT UP TO CHAIR FOR DINNER. SWITCHED TO VAPOTHERM AND NRB. PT'S CAME BY FOR A FEW MINUTS AND STOOD OUTSIDE OF DOOR TO SEE PATIENT. PATIENT NOW WORKING ON HIS DINNER. CONTINUE TO MONITOR.
--- NOTE | 2021-03-14 19:30 | NUR ---
REPORT RECEIVED FROM CAT GRIFFIN. PT WEARING CPAP IN BED ON RIGHT SIDE WITH SPO2 92%.
--- NOTE | 2021-03-14 20:35 | NUR ---
IN TO ASSESS PT AND DO HS MEDS. PT REPORTS FEELING TIRED FROM A BUSY DAY. WEARING CPAP 16/90% AND SPO2 90%. LUNGS ARE DIM IN BASES, FEW CRACKLES HEARD IN RIGHT BASE, PT HAS BEEN RESTING ON RIGHT SIDE, ASSISTED TO LEFT SIDE. TOOK OFF CPAP QUICKLY TO TAKE HS MEDS AND SIPS OF WATER, SATS REMAINED IN 80'S THEN CPAP MASK QUICKLY PLACED BACK ON. PT NOW LYING DOWN TO TRY TO SLEEP FOR THE NIGHT.
--- NOTE | 2021-03-14 22:15 | NUR ---
PT REMAINS WEARING CPAP, SPO2 HAS DROPPED DOWN OVER THE LAST 20 MINUTES TO 85%. FIO2 TURNED UP TO 100% AND SPO2 UP TO 88%.
--- NOTE | 2021-03-14 23:47 | NUR ---
PT CALLS TO ASK FOR ICE WATER, IN TO DO ASSESSMENT AND VS. PT STATES HE IS SLEEPING "ON AND OFF", NO REQUESTS AT THIS TIME. LUNGS HAVE SOME COARSE SCATTERED SOUNDS, RR INCREASED 32-38 AND SPO2 HAS BEEN CONSISTENTLY 88% WITH CPAP ON 16/100%. HR 80'S.
--- NOTE | 2021-03-15 01:55 | NUR ---
PATIENT ASSISTED TO ROLL OVER TO HIS RIGHT SIDE. PATIENT REMAINS ON CPAP. PATIENT DENIES ANY FURTHER NEEDS. CALL [facility] IN REACH.
--- NOTE | 2021-03-15 02:30 | NUR ---
OXYGEN SATS IMPROVED WITH PT ON HIS RIGHT SIDE, WENT FROM 88% TO 94-96% ONCE HE TURNED OVER.
--- NOTE | 2021-03-15 03:40 | NUR ---
IN TO CHECK ON PT, ASSESSMENT DONE, PT CONTINUES TO WEAR CPAP WITH SPO2 95%
--- NOTE | 2021-03-15 05:32 | NUR ---
LAB IN TO DRAW
--- NOTE | 2021-03-15 06:20 | NUR ---
IN TO HANG IV ABX, PT APPEARS RESTFUL. CONT TO WEAR CPAP 16/100%.
--- NOTE | 2021-03-15 07:30 | NUR ---
Update from RN, maintaining from yesterday.
--- NOTE | 2021-03-15 08:37 | NUR ---
IN PATIENT'S ROOM FOR BREAKFAST, MEDS, VITALS. CBG 173. PT UP TO CHAIR ON CPAP AT 100% FI02. PT THEN TO COMMODE FOR BM. PT NOW IN CHAIR FOR BREAKFAST. ON VAPOTHERM AND NRB FLUSH. SP02 IN THE 80s. PT STARTING TO EAT BREAKFAST. CONTINUE TO MONITOR.
--- NOTE | 2021-03-15 09:31 | NUR ---
DR. CHANG IN ROOM TO SEE PATIENT. ABG TO BE DONE PER RT. PT ASKING ABOUT PRONING AND WILL BE HELPED TO GET INTO PRONE POSITION. NOSE PAD PUT BACK ON PATIENT'S BRIDGE OF NOSE AND CPAP IS AT 16 AND 100% AT THIS TIME.
--- NOTE | 2021-03-15 11:15 | NUR ---
PATIENT HELPED TO GET FROM CHAIR INTO PRONED POSITION ON PILLOWS. PT TOLERATED FAIR, AND IS NOW HAVING SP02 OF 97-100% PRONED, ON 90% FI02 CPAP OF 16. WILL ALLOW PATIENT TO REST IN THIS POSITION LONG HE IS ABLE TO. HR IN THE 70s.
--- NOTE | 2021-03-15 12:04 | NUR ---
PATIENT REMAINS PRONED AT THIS TIME AND IS COMFORTABLE. PT STATES HE DOESN'T WANT LUNCH RIGHT NOW HE "DOESN'T WANT TO RUIN A GOOD THING" REFERRING TO THE PRONE POSITION. SP02 HAS BEEN 99-100% ON 90% FI02, THEREFORE TURNED DOWN TO 80% WHILE PRONED. IV ABX INFUSING STILL AT THIS TIME. RR 28. CONTINUE TO MONITOR. CALL LIGHT WITHIN REACH.
--- NOTE | 2021-03-15 14:00 | NUR ---
PATIENT OUT OF PRONE POSITION AT 1330 AND LAYING ON BACK/SLIGHTLY TILTED TO RIGHT SIDE. PT'S DAUGHTER MOON NOW IN ROOM VISITING WITH PATIENT. PT DIDN'T WANT LUNCH, BUT DID DRINK A STRAWBERRY ENSURE. WILL CONTINUE TO MONITOR.
--- NOTE | 2021-03-15 14:19 | NUR ---
PATIENT RESTING ON RIGHT SIDE ON CPAP 16, 90% FII02 AND SP02 IS 97%.W ILL TITRATE DOWN TO 80%. RED EMPTIED. CONTINUE TO MONITOR.
--- NOTE | 2021-03-15 15:16 | NUR ---
Patient has been in house x 8 days with Lorraine. He is on a 60 gm consistent carb diet and has a good appetite. He does not miss meals, except he didn't eat a full lunch today because he was proning. His blood sugars are improving, he is receiving long-acting insulin once a day and short acting insulin with meals. No nutrition intervention needed at this time. Continue to encourage balanced meals with protein and if patient does not want a full meal, provide an Ensure High Protein. Will continue to monitor.
--- NOTE | 2021-03-15 17:34 | NUR ---
PATIENT UP FROM LAYING ON LEFT SIDE AND INTO CHAIR. PT MOVES WHILE ON CPAP AND TOLERATES FAIR. PT NOW EATING DINNER ON VAPOTHERM AND NONREBREATHER MAX SETTINGS. SP02 STAYING IN THE MID 80s. TEMP 99.8 AXILLARY - PRN TYLENOL GIVEN.
--- NOTE | 2021-03-15 17:59 | NUR ---
PATIENT STARTING TO SHIVER AFTER DINNER. TEMP WAS 99.8 NOT VERY LONG AGO AND TYLENOL WAS GIVEN. PT GIVEN WARM BLANKETS. PT'S HAIR WASHED WTIH A SHAMPOO CAP. SP02 IS 86% AT THIS TIME WITH VAPOTHERM MAXED AND NONREBREATHER OVER TOP. RR 33-35 AT THIS TIME. HR HAS ALSO BEEN ELEVATED, 90-110s, WHERE HE NORMALLY RUNS 60-80s. CONTINUE TO MONITOR CLOSELY.
--- NOTE | 2021-03-15 19:30 | NUR ---
REPORT RECEIVED FROM CAT GRIFFIN. PT RESTING IN BED IN PRONE POSITION WEARING CPAP AND PSO2 95%.
--- NOTE | 2021-03-15 20:20 | NUR ---
IN TO DO ASSESSMENT. LUNGS CLEAR/DIM. PT IN PRONE POSITION. SIPS OF WATER GIVEN. CALL LIGHT IN REACH.
--- NOTE | 2021-03-15 20:40 | NUR ---
JEAN PIERRE MUSTAFA IN TO SEE PT.
--- NOTE | 2021-03-15 23:56 | NUR ---
PT RESTING ON RIGHT SIDE WEARING CPAP 16/80% AND SPO2 92% RR 35, HR 70'S.
--- NOTE | 2021-03-16 00:15 | NUR ---
PT CALLED FOR SIPS OF WATER AND FOR ASSISTANCE WITH TURNING OVER ONTO LEFT SIDE. PT TURNED OVER ONTO LEFT REMAINING ON CPAP AND SPO2 DOWN TO 84% THEN BACK UP TO MID NINETIES ONCE HE GOT SETTLED. SIPS OF WATER GIVEN, NO FURTHER REQUESTS. CALL LIGHT IN HAND.
--- NOTE | 2021-03-16 01:43 | NUR ---
PT CALLS FOR SIPS OF WATER, ASSISTED WITH REPOSITIONING SOME IN BED. REMAINS ON CPAP 16/80% WITH SPO2 92%.
--- NOTE | 2021-03-16 04:16 | NUR ---
PT CALLS FOR HELP WITH REPOSITIONING CPAP MASK, HAS TURNED HIMSELF OVER ONTO HIS BACK NOW. SPO2 85%, WILL MONITOR AND TURN UP FIO2 IF SATS DONT IMPROVE. RR 20. HR 60'S. PT GIVEN SIPS OF WATER, WARM BLANKET, ASSESSMENT DONE, CALL LIGHT IN REACH.
--- NOTE | 2021-03-16 06:45 | NUR ---
PT RESTING ON BACK, SPO2 87%, CPAP 16/80% HR 60'S.
--- NOTE | 2021-03-16 08:16 | NUR ---
BVM IN ROOM. FIO2 INCREASED TO 100% FOR SPO2 OF 86% ON 80% FIO2. BBS TUBULAR, BUT DIMINISHED IN THE BASES.
--- NOTE | 2021-03-16 09:40 | NUR ---
THIS RN IN TO ASSESS PT AND ADMINISTER SCHEDULED MEDICATIONS, PT LAYING IN BED AWAKE AND ALERT ON THE CPAP AT 18 AND 100%. PT WAS ALERT AND ORIENTED X3, VITALS TAKEN AND PT ASSESSED AT THIS TIME. PT REPORTS HIS BREATHING FEELS IMPROVED, PT REPORTS NO SHORTNESS OF BREATH AT THIS TIME, CRACKLES HEARD IN BASES OF THE LUNGS BILATERALLY. PT REPORTS A COUGH AND GENERALIZED PAIN, SCHEDULED MEDICATIONS ADMINISTERED ALONG WITH PRN TYLENOL AND PRN COUGH MEDICATION (SEE MAR). 5 UNITS OF INSULIN ADMINISTERED PER SLIDING SCALE. AFTERWARDS PT WAS ABLE TO GET UP TO THE BEDSIDE CHAIR IN ORDER TO EAT BREAKFAST. PT THEN CHANGED TO THE VAPOTHERM AT 40LPM 100% FIO2 AND 15+ NRB TO EAT BREAKFAST. PT NOW EATING BREAKFAST WHILE ON THE CHAIR, SPO2 86-88%, WILL CONTINUE PLAN OF CARE. CALL LIGHT IN REACH, IV ABX INFUSING ORDERED.
--- NOTE | 2021-03-16 11:50 | NUR ---
THIS RN IN TO ASESS PT, PT SITTING UP IN THE CHAIR ON THE CPAP AT 16 AND 100%, SPO2 91-92%. PT STATED HE WANTED TO PRONE ON THE BED AT THIS TIME, PILLOWS PLACED ON BED FOR COMFORT FOR WHEN PT WOULD PRONE. PT ABLE TO STAND UP GET ON THE BED ON ALL FOUR LIMBS AND CRAWL INTO POSITION. PT BECAME SHORT OF BREATH WHILE GETTING ON THE BED, SPO2 NOTED TO DROP TO 80% BUT INCREASED AFTER RESTING. PT THEN TITRATED DOWN TO 80% FIO2 AND CPAP DECREASED FROM 16 TO 14 PT COMPLAINED OF THE HIGH PRESSURE. PT NOW RESTING IN BED PRONING, SPO2 95%. VITALS TAKEN AFTERWARDS AND PT ASSESSED (SEE CHART). PT CBG ASSESSED AND WAS 240. INSULIN HELD PT STATED HE DID NOT WANT TO EAT FOOD UNTIL AFTER HE FINISHED PRONING FOR 2 HOURS. WILL REASSESS BLOOD SUGAR AND ADMINISTER INSULIN AT THAT TIME. PT REPORTS NO FURTHER NEEDS AT THIS TIME AND IS PRONING, CPAP IN PLACE, SPO2 95%, CALL LIGHT IN REACH, BED IN LOWEST POSITION, WILL CONTINUE PLAN OF CARE.
--- NOTE | 2021-03-16 14:23 | NUR ---
THIS RN IN TO CHECK ON PT . PT PRONING AT THIS TIME ON THE CPAP AT 13 AND 70%. PT AWOKE EASILY, LUNCH ORDER TAKEN AT THIS TIME PT STATED HE WANTED TO EAT A LATE LUNCH TODAY. CBG ASSESSED AND WAS 223. SCHEDULED ANTIBIOTICS STARTED AT THIS TIME (SEE MAR). PT REPORTS NO FURTHER NEEDS AND STATES HE WOULD LIKE TO EAT HIS LUNCH ON THE CHAIR ONCE IT ARRIVES. WILL CONTINUE PLAN OF CARE AND ADMINISTER INSULIN WHEN LUNCH ARRIVES, CALL LIGHT IN REACH, BED IN LOWEST POSITION.
--- NOTE | 2021-03-16 15:00 | NUR ---
No change in plan for CM.
--- NOTE | 2021-03-16 15:21 | NUR ---
THIS RN IN TO ADMINISTER SCHEDULED MEDICATIONS. PT LAYING IN BED PRONING ON THE CPAP AT 13 AND 70% FIO2. SPO2 AT 90-91%. 5 UNITS OF INSULIN ADMINISTERED PER SLIDING SCALE. PT ABLE TO ROLL TO SIDE AND THEN SIT UP ON THE SIDE OF THE BED BEFORE STANDING AND PIVOTING TO THE BEDSIDE CHAIR WHILE ON 100% FIO2 ON THE CPAP. AFTER RECOVERING PT WAS PLACED ON THE VAPOTHERM AT 40LPM AND 100% FIO2 ALONG WITH 15+ NRB TO EAT HIS LUNCH. PT REPORTS NO FURTHER NEEDS AT THIS TIME AND IS NOW EATING, SPO2 MAINTIANING 86-88%, WILL CONTINUE PLAN OF CARE. CALL LIGHT IN REACH.
--- NOTE | 2021-03-16 16:00 | NUR ---
THIS RN IN TO PUT PT BACK ON THE CPAP. PT SITTING IN CHAIR AT THIS TIME AWAKE AND ALERT AND HAD FINISHED HIS LUNCH. IV ANTIBIOTICS STILL INFUSING AT ORDERED RATE. PT ON THE VAPOTHERM AND NONREBREATHER AT 88-90% SPO2. PT CHANGED OVER TO THE CPAP AND PLACED ON 14 AND 100% FIO2. PT NOW RESTING ON THE CHAIR ON THE CPAP, SPO2 90-91%. PT'S DAUGHTER NOW IN ROOM WITH PT AT THIS TIME. PT REPORTS NO FURTHER NEEDS WHEN ASKED, CALL LIGHT IN REACH, BED IN LOWEST POSITION, WILL CONTINUE PLAN OF CARE.
--- NOTE | 2021-03-16 17:35 | NUR ---
RESPONDED TO PT CALL LIGHT DAUGHTER INFORMED THIS RN THAT THE PT WANTED TO GO BACK TO THE BED. PT LAYING IN CHAIR ON THE CPAP, SPO2 90-91%. PT ABLE TO STAND ON OWN AND GET INTO BED, PT NOTED TO DESATURATE TO 80% BUT WENT BACK UP TO 90% AFTER GETTING INTO A SIDELAYING POSITION. PT PROVIDED WITH WARM BLANKETS AT THIS TIME PT STATES HE FEELS COLD. CBG ASSESSED. 5 UNITS OF INSULIN GIVEN PER SLIDING SCALE. VITALS ASSESSED TEMPERATURE NOTED TO BE 99.8 AXILLARY, BLOOD PRESSURE NOTED TO BE 172/94 (113). PT NOTED TO NOW BE SHIVERING AT THIS TIME AND STATES HE FEELS CHILLS. PRN TYLENOL ADMINISTERED AT THIS TIME. PT NOW RESTING IN BED, DINNER AT THE BEDSIDE, PT STATES HE WILL WAIT HE IS NOT HUNGRY AT THIS TIME. CALL LIGHT IN REACH, BED IN LOWEST POSITION, IV ANTIBIOTIC INFUSING, CPAP ON PREVIOUS SETTINGS, SPO2 MAINTAINING AT 86-89% ON THE CPAP AT 100% FIO2. WILL CONTINUE PLAN OF CARE.
--- NOTE | 2021-03-16 19:02 | NUR ---
RESPONDED TO PT CALL LIGHT, PT STATED HE WANTED TO TDRINK SOME WATER AT THIS TIME. PT PROVIDED WITH ENSURE AND ICE WATER, PT PLACED BACK CPAP AFTERWARDS. PT TEMPERATURE ASSESSED AT THIS TIME, AXILLARY TEMPERATURE WAS 101.7. PT STATES HIS BREATHING FEELS IMPROVED, PT NO LONGER SHIVERING AT THIS TIME. PT BACK TO A LEFT SIDELYING POSITION AT THIS TIME RESTING ON THE CPAP, SPO2 92%, WILL CONTINUE PLAN OF CARE. CALL LIGHT IN REACH, BED IN LOWEST POSITION, PT SALINE LOCKED NOW IV ABX HAD FINISHED.
--- NOTE | 2021-03-16 19:30 | NUR ---
RECEIVED REPORT FROM [facility]. pt RESTING IN BED ON LEFT SIDE. NO REQUESTS AT THIS TIME. RESPIRATIONS 35-45, LABORED. CALL LIGHT WITHIN REACH. pt REPORTS "I'M DOING WELL"
--- NOTE | 2021-03-16 19:40 | NUR ---
ASSESSMENT DONE. pt RESPIRATIONS REMAIN HIGH. pt HAD BURST OF SVT, DENIED ANY SYMPTOMS, HR IRREGULAR, 120-140. SEE ASSESSMENT. RED HAS CONCENTRATED URINE. RED CARE DONE. pt ON LEFT SIDE.
--- NOTE | 2021-03-16 19:41 | NUR ---
CALLED DR CHANG WITH UPDATE ON pt INCREASED HR AND TEMPERATURE, HIGH RESPIRATIONS AND LABORED BREATHING. DR CHANG INPUTING ORDERS.
--- NOTE | 2021-03-16 21:25 | NUR ---
RT ESPINOZA AND THIS RN ASSISTED pt TO PRONE. MEDICATIONS GIVEN. LABS DRAWN, NEW IV STARTED.
--- NOTE | 2021-03-16 21:48 | NUR ---
pt CONTINUES TO PRONE, RT IN ROOM TO ASSIST WITH MASK. CPAP 14/100%, SATS 85% SLOWLY RISING. RESPIRATIONS REMAIN MID 30'S TO 40'S. TEMP AND MANUAL BP TAKEN. RT IN ROOM. CALL LIGHT WITHIN REACH.
--- NOTE | 2021-03-16 22:00 | NUR ---
DR CHANG IN ROOM ASSESSING pt. DR CHANG INPUTING NEW ORDERS. pt CONTINUES TO PRONE
--- NOTE | 2021-03-16 22:54 | NUR ---
ROUNDED ON pt. CONTINUES TO PRONE. IV FLUID STARTED PER ORDERS. NO REQUESTS AT THIS TIME. CALL LIGHT WITHIN REACH.
--- NOTE | 2021-03-16 23:01 | NUR ---
CALL LIGHT ON. pt REPORTED A LEAK IN CPAP MASK. STRAPS ADJUSTED TO FIX LEAK. pt CONTINUES TO PRONE. CALL LIGHT WITHIN REACH.
--- NOTE | 2021-03-16 23:48 | NUR ---
ROUNDED ON pt. pt REMAINS IN PRONE POSITION. REQUESTED TO STAY IN THAT POSITION FOR AN OTHER HOUR. ASSISTED TO REPOSITION MASK. NO FURTHER REQUESTS AT THIS TIME. CALL LIGHT WITHIN REACH.
--- NOTE | 2021-03-17 00:29 | NUR ---
UPDATE GIVEN TO DR CHAGN NO CHANGES TO TREATMENT PLAN
--- NOTE | 2021-03-17 01:01 | NUR ---
CALL LIGHT ON. pt REQUESTED TO MOVED FROM PRONE TO LEFT SIDE. pt ABLE TO ASSIST WITH REPOSITIONING. SATS 78% WITH MOVEMENT, INCREASED TO MID 90'S. RESPIRATIONS REMAIN MID 30'S, LESS LABORED THAN AT START OF SHIFT. ASSESSMENT DONE. NO OTHER CHANGES NOTED. CALL LIGHT WITHIN REACH.
--- NOTE | 2021-03-17 02:39 | NUR ---
ROUNDED ON pt. TURNED ON CPAP HEAT PER REQUEST. pt HAD QUESTIONS ABOUT SLEEPING WITH CPAP ON. ALL QUESTIONS ANSWERED. pt REMAINS ON LEFT SIDE. CALL LIGHT WITHIN REACH.
--- NOTE | 2021-03-17 03:29 | NUR ---
CALL LIGHT ON. pt REPORTED "I'M GETTING TOO MUCH AIR" DISCUSSED IMPORTANCE OF PRESSURE SUPPORT WITH HIS LUNGS. pt REPORTED A COUGH AND REQUESTED TYLENOL FOR DISCOMFORT, PRNS GIVEN (SEE MAR). CPAP TITRATED TO 14/100%, SATS TOOK A WHILE TO RECOVER, HIGH 80'S TO LOW 90'S. CALL LIGHT WITHIN REACH.
--- NOTE | 2021-03-17 04:06 | NUR ---
pt COUGHING, SATS DROPPING. pt REQUESTED TO BE PLACED ON VAPOTHERM AND NRB, DONE, SATS LOW 70'S DID NOT RECOVER. BACK ON CPAP 18/100%, SATS SLOWLY INCREASED TO HIGH 80'S TO LOW 90'S ON CPAP. pt UNABLE TO REPOSITION AT THIS TIME. HR INCREASED TO 100-110, RESPIRATIONS 40'S. EDUCATION DONE.
--- NOTE | 2021-03-17 04:10 | NUR ---
pt TOLERATING CPAP 18/100% AT THIS TIME. SATS 90%, RESPIRATIONS 40. HR 93.
--- NOTE | 2021-03-17 05:22 | NUR ---
IN TO DO LAB DRAW AND MEDS. ASSISTED pt TO ROLL TO RIGHT SIDE. O2 SAT DROPPED TO MID 80'S. RESPIRATIONS 40-50. CALL LIGHT WITHIN REACH.
--- NOTE | 2021-03-17 06:10 | NUR ---
ROUNDED ON pt. RESTING ON RIGHT SIDE. RESPIRATIONS 40, HR 100-110'S. O2 SAT 88%. CALL LIGHT WITHIN REACH.
--- NOTE | 2021-03-17 06:27 | NUR ---
UPDATED DR CHANG ON [place], LOW O2 SATS AND WORK OF BREATHING. ORDERS TO GIVE MORPHINE AND THEN PRONE pt. ORDER ENTERED.
--- NOTE | 2021-03-17 06:48 | NUR ---
MORPHINE GIVEN, pt PRONED WITH ASSISTANCE OF THREE RNS. pt SATS 70'S. HR 100-110. SATS SLOWLY RECOVERING
--- NOTE | 2021-03-17 07:05 | NUR ---
SATS NOW 84%, pt REPORTS HE IS FEELING BETTER PRONING. HR 105, RR 40.
--- NOTE | 2021-03-17 08:54 | NUR ---
2 mg iv morphine given for wob. pt still requiring cpap mask to be held on his face while he prones to decrease the leaking and keep pt sats at 87-90. pt reports "I'm so tired, I can't do this much longer". pt has elevated hr and bp.
--- NOTE | 2021-03-17 10:10 | NUR ---
PT'S DAUGHTER MOON IS NOW IN THE ROOM AND TALKING WITH HER FATHER. JASVIR JARVIS HAS BEEN CALLED AND IS EN ROUTE TO COME TO THE ROOM AND ENTUBATE THE PT.
--- NOTE | 2021-03-17 10:24 | NUR ---
2 mg iv morphine given for increased wob.
--- NOTE | 2021-03-17 10:34 | NUR ---
INTUBATION - 1034 - PT TURNED SUPINE IN PREP FOR INTUBATION 1038 - PATCHER HELPER MATHEUS IN THE ROOM 1041 - 100 MG ROCURONIUM, 50 MG PROPOFOL, 50 MG KETAMINE, 100 FENYLEPHRINE ALL GIVEN IN PREP FOR INTUBATION 1042 - 7.5 TUBE PLACED 23 AT THE TEETH, ETCO2 33 1044 - 200 MG FENTYNEL GIVEN 1045 - 5 MG EPHEDRINE GIVEN 1047 - OG TUBE SUCESSFULLY PLACED BY MATHEUS PATCHER HELPER 1048 - 100 MG FENYLEPHRINE GIVEN
--- NOTE | 2021-03-17 11:00 | NUR ---
PROPOFOL TITRATION - 1100 - PROPOFOL STARTED AT 20 MCG/KG/MIN PER ORDER GIVEN AT BEDSIDE 1128 - PROPOFOL TITRATED TO 30 MCG/KG/MIN PER [facility] INTENSIVE[facility]. 1137 - PROP TITRATED TO 40 MCG/KG/MIN PER INTENSIVEST 1142 - PROP TITRATED TO 50 MCG/KG/MIN PER INTENSIVEST
--- NOTE | 2021-03-17 12:44 | NUR ---
STAFF IS PREPARING TO INTEBATE PT, DONALDO IS WAITING OUTSIDE . DAUGHTERS ARE ON THEIR WAY-ONE IS A CLINICAL LABORATORY SCIENCE PROFESSOR FROM [facility]. PT IS TO BE LIFEFLIGHTED THERE' GAVE ENCOURAGEMENT TO DONALDO, SHE REQUESTED PRAYER. FAMILY ARRIVED, ESCORTED THEM TO [facility] . CYTOPATHOLOGY TECHNOLOGIST ORDERED HOSPITALITY TRAY. GAVE L.F. PACK LIST AND ANSWERED ANY QUESTIONS THEY HAD. WILL CONTINUE TO FOLLOW
--- NOTE | 2021-03-17 18:49 | NUR ---
LIFEFL[facility] - ARRIVED AT 1250 [facility] LARGE WEDGE MADE OUT OF SIEZURE PAD AND 3 PILLOWS TO ELEVATE PT CHEST TO ALLOW BETER O2 EXCHANGE PT IS IN FULL PRONE POSITION, PT GIVEN ADDITIONAL PARAYLTIC GIVEN BY CREW WELL ADDITIONAL FENTYNAL FOR PAIN MANAGEMENT, NIMBEX DRIP SENT WITH CREW, IT WAS NOT ABLE TO BE STARTED IN OUR CCU DUE TO OUR PUMP LIBRARY. O2 SATS OF 83-85% OBTAINED LIFE FLIGHT ABLE TO CONTINUE WITH TRANSPORT AT THIS POINT. DEPARTED AT 1348
== END 2021-03-17 13:48 | disposition short-term general hospital (02) | DRG 208 ==
LOC: ED 04:00 → MS 05:11 → CCU 05:11
PROVIDERS: ADMIT Student in an Organized Health Care Education/Training Program; ATTEND Student in an Organized Health Care Education/Training Program
PROC: 8E0ZXY6 Isolation (ICD-10-PCS; principal; 2021-03-07)
PROC: XW033E5 Introduction of Remdesivir Anti-infective into Peripheral Vein, Percutaneous Approach, New Technology Group 5 (ICD-10-PCS; 2021-03-07)
PROC: 3E0333Z Introduction of Anti-inflammatory into Peripheral Vein, Percutaneous Approach (ICD-10-PCS; 2021-03-07)
PROC: 3E0DX3Z Introduction of Anti-inflammatory into Mouth and Pharynx, External Approach (ICD-10-PCS; 2021-03-07)
PROC: 5A09557 Assistance with Respiratory Ventilation, Greater than 96 Consecutive Hours, Continuous Positive Airway Pressure (ICD-10-PCS; 2021-03-07)
PROC: XW0DXM6 Introduction of Baricitinib into Mouth and Pharynx, External Approach, New Technology Group 6 (ICD-10-PCS; 2021-03-08)
PROC: 0BH18EZ Insertion of Endotracheal Airway into Trachea, Via Natural or Artificial Opening Endoscopic (ICD-10-PCS; 2021-03-17)
PROC: 5A1935Z Respiratory Ventilation, Less than 24 Consecutive Hours (ICD-10-PCS; 2021-03-17)
DX: U07.1 COVID-19 (principal); J96.01 Acute respiratory failure with hypoxia; J12.82 Pneumonia due to coronavirus disease 2019; E11.65 Type 2 diabetes mellitus with hyperglycemia; I10 Essential (primary) hypertension; E78.5 Hyperlipidemia, unspecified; E66.01 Morbid (severe) obesity due to excess calories; Z68.38 Body mass index [BMI] 38.0-38.9, adult; Z87.19 Personal history of other diseases of the digestive system; Z96.642 Presence of left artificial hip joint; Z96.651 Presence of right artificial knee joint; Z79.84 Long term (current) use of oral hypoglycemic drugs; Z79.899 Other long term (current) drug therapy
CPT/HCPCS: 31500; 36600; 71045; 71260; 80053; 81001; 82803; 83036; 83735; 83880; 84484; 85007; 85025; 85651; 86140; 87040; 93005; 93010; 94002; 94640; 94660; 94667; 94668; 94760; 94799; 96374; 96375; 99285-25; A9270; J0692; J1100; J1650; J1815; J1885; J1956; J2270; J2405; J2543; J2704; J3010; J3370; J3475; J7030; J7050; J7060; J7121; Q9967